=== PATIENT | female | born 1965 | race Caucasian/White ===

== ENCOUNTER → 2023-10-29 06:20 | Day surgery (SDC) | payer BC, SELFPAY | LOC: GI 06:20 | PROVIDERS: ATTENDING PHYSICIAN Internal Medicine; FAMILY PHYSICIAN Internal Medicine | DX: Z12.11 Encounter for screening for malignant neoplasm of colon (principal); K64.9 Unspecified hemorrhoids; N81.6 Rectocele; Z86.010 Personal history of colon polyps; K57.30 Diverticulosis of large intestine without perforation or abscess without bleeding; D12.2 Benign neoplasm of ascending colon | CPT/HCPCS: 45380; 88305 ==

== ENCOUNTER → 2023-11-10 08:53 | Outpatient (REF) | payer BC, SELFPAY | LOC: WDC 08:53 | PROVIDERS: ATTENDING PHYSICIAN Nurse Practitioner Family; FAMILY PHYSICIAN Internal Medicine | DX: R92.2 Inconclusive mammogram (principal) | CPT/HCPCS: 76641 ==

== ENCOUNTER → 2023-12-03 11:23 | Outpatient (REF) | payer BC, SELFPAY | LOC: WDC 11:23 | PROVIDERS: ATTENDING PHYSICIAN Nurse Practitioner Family; FAMILY PHYSICIAN Internal Medicine | DX: Z12.31 Encounter for screening mammogram for malignant neoplasm of breast (principal) | CPT/HCPCS: 77063; 77067 ==

== ENCOUNTER → 2023-12-04 08:33 | Outpatient (REF) | payer BC, SELFPAY | LOC: WDC 08:33 | PROVIDERS: ATTENDING PHYSICIAN Nurse Practitioner Family; FAMILY PHYSICIAN Internal Medicine | DX: R92.8 Other abnormal and inconclusive findings on diagnostic imaging of breast (principal) | CPT/HCPCS: 77065 ==

== ENCOUNTER → 2024-01-04 15:52 | Outpatient (REF) | payer BC, SELFPAY | LOC: MRI 3T 15:52 | PROVIDERS: ATTENDING PHYSICIAN Nurse Practitioner Family; FAMILY PHYSICIAN Internal Medicine | DX: R92.8 Other abnormal and inconclusive findings on diagnostic imaging of breast (principal) | CPT/HCPCS: 77049; A9585 ==

== ENCOUNTER → 2024-01-07 09:58 | Outpatient (REF) | payer BC, SELFPAY | LOC: RCS 09:58 | PROVIDERS: ATTENDING PHYSICIAN Internal Medicine Cardiovascular Disease; FAMILY PHYSICIAN Internal Medicine | DX: R00.2 Palpitations (principal); R06.09 Other forms of dyspnea; R07.89 Other chest pain | CPT/HCPCS: 93017 ==

== ENCOUNTER 2024-05-17 10:19 | Emergency (ER) | payer BC, SELFPAY ==
[2024-05-17] VITALS (8 sets, daily range): BP systolic 104–146; BP diastolic 62–77; PULSE 61–69; BMI 23.2
[2024-05-17 11:43] LABS: % Basophils 1.1 % (0-2); % Eosinophils 2.9 % (0-6); % Immature Granulocytes 0.2 % (0-0.5); % Lymphocytes 48.1 % (20.5-51.1); % Monocytes 9.3 % (1.7-9.3); % Neutrophils 38.4 % (42.2-75.2); Absolute Basophils 0.1 10^3/uL (0-0.2); Absolute Eosinophils 0.2 10^3/uL (0-0.7); Absolute Lymphocytes 2.7 10^3/uL (1.2-3.4); Absolute Monocytes 0.5 10^3/uL (0.1-0.6); Absolute Neutrophils 2.1 10^3/uL (1.4-6.5); Hematocrit 40.1 % (37.0-47.0); Hemoglobin 14.1 g/dL (12.0-16.0); Mean Corp Hgb Conc. 35.2 g/dL (33.0-37.0); Mean Corpuscular Volume 90.9 fL (81.0-99.0); Mean Platelet Volume 9.5 fL (7.4-10.4); Nucleated Red Blood Cells % 0 %; Platelet Count 270 10^3/uL (130-400); Red Blood Cell Count 4.41 10^6/uL (4.20-5.40); Red Cell Dist. Width 12.2 % (11.5-14.5); White Blood Cell Count 5.5 10^3/uL (4.8-10.8)
[2024-05-17] MEDS: NSS 1000 IV (11:52)
[2024-05-17 11:53] LABS: Urine Albumin Negative (Neg - Trace); Urine Bilirubin Negative (Negative); Urine Character Clear (Clear); Urine Color Yellow; Urine Glucose Negative (Negative); Urine Ketone Negative (Negative); Urine Leukocyte Negative (Negative); Urine Nitrite Negative (Negative); Urine Occult Blood Negative (Negative); Urine Specific Gravity 1.005 (<1.030); Urine Urobilinogen Negative (Neg - 1+)
[2024-05-17 11:55] LABS: ALT (SGPT) 15 U/L (0-35); AST (SGOT) 27 U/L (14-36); Albumin 4.4 g/dl (3.5-5.0); Alkaline Phosphatase 71 U/L (38-126); Blood Urea Nitrogen 15 mg/dl (7-17); Calcium 10.3 mg/dl (8.4-10.2); Carbon Dioxide 30 mmol/L (22-30); Chloride 102 mmol/L (98-107); Estimated Creatinine Clearance 55 ml/min; Glucose 73 mg/dl (70-99); Potassium 4.3 mmol/L (3.5-5.1); Sodium 139 mmol/L (135-145); Total Bilirubin 0.5 mg/dl (0.2-1.3); Total Protein 6.8 g/dl (6.3-8.2); eGFR > 60.00
[2024-05-17 12:07] LABS: Troponin I < 0.012 ng/ml
--- NOTE | 2024-05-17 12:23 | ED.GENMED ---
History of Present Illness
General
Chief Complaint: Fainting Sensation
Source: patient
Exam Limitations: none
Time Seen by Provider: 05/17/24 11:25
Nursing documentation reviewed up to this point in time: agreed with
History of Present Illness
History of Present Illness:
Patient is a 58 year old female with history hypothyroid, frequent PVCs and PACs presenting to the emergency department for evaluation of heart palpitations with associated lightheadedness. Patient states that she was standing up working as an
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 The symptoms persisted and she came to the emergency department for evaluation. She did have some mild associated chest discomfort which
quickly resolved and denies any exertional or pleuritic component. Patient denies any associated dizziness, nausea, vomiting, diaphoresis.
Patient does report very frequent PVCs/PACs but she does follow with Dr. Dali Munoz. She had a recent exercise stress test in 01/19 which showed PVCs but no other ischemic changes.
Patient takes propranolol 60 mg ER daily with dinner. She has been taking it intermittently over the past year but has been taking it consistently for the past 2 weeks.
Review of Systems
Review of Systems
Allergies reviewed?: Yes
All Other Systems: ROS reviewed and negative except as documented in HPI and ROS
Phy Exam
Physical Exam
Physical Exam:
Vitals: Slightly bradycardic on arrival, otherwise vital signs stable. Afebrile
General: Patient is well appearing, no acute distress. Nontoxic-appearing
Skin: Warm and dry, no rashes or lesions
Head: Normocephalic, atraumatic
Eyes: Sclera nonicteric. EOMs intact. No nystagmus.
Throat: Protecting airway. Trachea midline
Neck: Normal ROM, no cervical spine tenderness, no meningismus
Cardiac: Regular rate and rhythm, heart sounds normal.
Pulm: Normal respiratory effort, no wheezes, rales, rhonchi heard on exam.
Abdomen: Abdomen soft. No abdominal tenderness.
Extremities: No evidence of cyanosis or edema. Great distal pulses. Strength 5/5 in upper and lower extremities
Neuro: AAOx3. CN II-XII intact. No focal neurologic deficits.
Psychiatric: Normal affect.
Course
Orders/Labs/Results
Orders:
Orders
05/17/24 10:34
EKG [Electrocardiogram (*1)] Urgent
Reason for Study: Syncope
EKG- Treatment ONCE
05/17/24 11:12
Cardiac Monitoring- Treatment ONCE
IV Insert/Care/Rem.- Treatment PRN
O2 Therapy [RESP] Urgent
Titrate/Wean O2 to maintain O2 sat greater than (%): 90
Special Instructions: Maintain sats >/=90%
Pulse Ox/spot Check [RESP] Urgent
Quantity: 1
Special Instructions: ON ROOM AIR
05/17/24 11:30
Complete Blood Count/With Diff Urgent
Comprehensive Metabolic Panel Urgent
Thyroid profile [TSH Reflex To Free T4] Urgent
Troponin I Urgent
UA Reflex to Culture [Urinalysis Reflex To Culture] Stat
Date Specimen was Collected: 05/17/24
Time Specimen was Collected: 11:23
05/17/24 11:44
Orthostatic VS- Treatment ONCE
0.9% Sodium Chloride 1000 ml [Nss] 1,000 ml IV BOLUS
Abnormal Lab Results
05/17/24
11:30
MCH 32.0 H pg
(27.0-31.0)
Neutrophils % 38.4 L %
(42.2-75.2)
Calcium 10.3 H mg/dl
(8.4-10.2)
05/17/24 11:30
05/17/24 11:30
Vital Signs
Initial and Last Documented VS:
Initial Vital Signs
Temp Pulse Resp BP Pulse Ox
98.1 F 48 14 146/74 100
05/17/24 10:30 05/17/24 10:30 05/17/24 10:30 05/17/24 10:30 05/17/24 10:30
Last Documented Vital Signs
Temp Pulse Resp BP Pulse Ox
98.1 F 57 16 104/62 100
05/17/24 10:30 05/17/24 13:00 05/17/24 13:00 05/17/24 13:00 05/17/24 13:00
MDM/Problems Addressed
Differential Diagnosis Includes:
Not limited to: Orthostatic hypotension, dehydration, viral illness, cardiac arrhythmia, PACs/PVCs, anemia, medication side effect
MDM/Problems Addressed:
58-year-old female presenting with palpitations and associated lightheadedness. Symptoms worse when changing position or walking. No exertional chest pain or shortness of breath. Patient asymptomatic in my initial evaluation. She was mildly
bradycardic on arrival to emergency department which I suspect to be likely related to her beta-zoya although heart rate of 60 on my initial evaluation. Otherwise her vital signs are stable. Physical exam as above. patient is well-appearing, in
no apparent distress. Heart regular rate and rhythm. Lungs clear bilaterally. Patient is perfusing well. She has no focal neurologic deficits. Orthostatic vital signs were obtained which show no evidence of systolic or diastolic drop with
position changes. EKG obtained shows no acute abnormalities or changes from baseline. Patient given a liter of IV fluids in emergency department. Will obtain labs.
Patient seen by Dr. Dali Munoz with frequent PVCs/PACs. Did review patient's exercise stress test performed this past December which shows PVCs but no evidence of other ischemic changes. Patient without any known history of coronary artery
disease.
Labs noted. No clinically significant abnormalities. Troponin is normal. Do not suspect ACS. Urine shows no signs of infection. Patient has been asymptomatic while lying in hospital bed. She was able to walk to bathroom without difficulty
although she did report a few palpitations. No evidence of cardiac arrhythmia noted on monitor while in emergency department however she does note occasional PVCs. Given patient's symptomatic nature of palpitations�Case was discussed with
machine lay out worker on-call, Dr. Dean. He reviewed EKG and chart and agrees that there are no acute changes. He recommends continuation of propranolol at current dose and has arranged close outpatient follow-up with their office in a few weeks. Patient
otherwise stable without any indication for admission. She feels well and comfortable with discharge. Return precautions discussed at length. Case discussed with attending physician
Chronic conditions affecting care:
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
Acute Exacerbation and/or Progression of Chronic Illness:
N/A
*Pulse Oximetry
Patient hypoxic: no
*EKG
Interpreted by ED Provider?: Yes
EKG Intrepretation Date: 05/17/24
Interpretation: normal
Comparison EKG: no comparison EKG present
Heart Rate: 65
Rate: normal
Rhythm: sinus
[place]: left axis deviation
Interval: normal interval
QRS Pattern: normal QRS
Ischemia: no ischemia
*Attendant [place] Interpretation
Rate: normal
Interpretation: normal
Heart Rate: 58
Rhythm: sinus
*Critical Care Note
Total Time (30-74mins, 75-104mins- exclusive of procedures): Not Applicable
Data Reviewed
Review of Other/Old Records Reveals: Operative Reports (Exercise stress test performed on 01/07/24)
Patient Management
Discussion with other providers: Dump Attendant (Dr. Dean - Cardiology)
Escalation/DeEscalation of care consider admission/obs:
Discharge for outpatient cardiology f/u arranged with Dr. Dean
ED Attending Note
-
Portions of this chart may have been created with voice recognition software.� Occasional wrong word or��sound alike� substitutions may have occurred due to the inherent limitations of voice recognition software.
Discharge Plan
Departure
Patient Disposition: Home (Routine Discharge)
Date of Disposition: 05/17/24
Time of Disposition: 14:16
Patient with high blood pressure during this ER visit?: No
Condition: Good
Covid-19: Not Applicable
Discharge Problem:
Palpitations, Lightheadedness
Instructions: Near Fainting (DC), Palpitations ED
Referrals:
Kristi Gann PA-C [Specified Professional Personl] - 06/07/24 7:40 am (You have a cardiology follow-up appointment at the [facility] with Dr. Mcnally's physician medical assistant dermatology, Kristi. Please call with questions)
Lucia Del Rosario MD [Family Provider] -
Stand Alone Forms: Return to Work
Activity Restrictions/Additional Instructions:
RETURN TO THE EMERGENCY DEPARTMENT WITH ANY FEVERS, CHEST PAIN, SHORTNESS OF BREATH, DIZZINESS/LIGHTHEADEDNESS, FAINTING, PERSISTENT/WORSENING PALPITATIONS, OR ANY OTHER CONCERNS
-As discussed - you should continue to take your medications as prescribed. Stay well hydrated. Follow-up with cardiology for further evaluation/management at your appointment as scheduled above.
Monitor your symptoms closely and return to the emergency department with any acute worsening/new symptoms
Interventions
Interventions:
*Risk Screen - Suicide Last Done: 05/17/24 11:25
*General Assessment Last Done: 05/17/24 10:30
*Neglect/Abuse Screening Last Done: 05/17/24 11:25
ED- Fall Risk Assessment Last Done: 05/17/24 11:25
*ED COVID-19 Vaccine History Last Done: 05/17/24 11:25
*Nursing Disposition Last Done: 05/17/24 14:34
ED- Cardiac Assessment Last Done: 05/17/24 11:25
ED- Neurological Assessment Last Done: 05/17/24 11:25
Discharge Date and Time
Discharge Date/Time: 05/17/24 14:34
Print Language: TURKISH
[2024-05-17 12:54] LABS: TSH Reflex To Free T4 0.64 uIU/ml (0.47-4.68)
== END 2024-05-17 14:34 | disposition home or self-care (01) ==
LOC: EMR 10:19
PROVIDERS: EMERGENCY PHYSICIAN Emergency Medicine; FAMILY PHYSICIAN Internal Medicine
DX: R55 Syncope and collapse (principal); R00.2 Palpitations; R07.89 Other chest pain; I49.3 Ventricular premature depolarization; E03.9 Hypothyroidism, unspecified; J45.909 Unspecified asthma, uncomplicated; K21.9 Gastro-esophageal reflux disease without esophagitis; Z88.2 Allergy status to sulfonamides
CPT/HCPCS: 99284; 96360; 94760; 80053; 81003; 84443; 84484; 85025; 93005

== ENCOUNTER → 2024-06-20 11:23 | Outpatient (REF) | payer BC, SELFPAY | LOC: WDC 11:23 | PROVIDERS: ATTENDING PHYSICIAN Nurse Practitioner Family; FAMILY PHYSICIAN Internal Medicine | DX: R92.8 Other abnormal and inconclusive findings on diagnostic imaging of breast (principal) | CPT/HCPCS: 77061; 77065 ==

== ENCOUNTER → 2024-07-25 12:18 | Outpatient (REF) | payer BC, SELFPAY | LOC: RAD 12:18 | PROVIDERS: ATTENDING PHYSICIAN Radiology Diagnostic Radiology; FAMILY PHYSICIAN Internal Medicine | DX: M79.672 Pain in left foot (principal) | CPT/HCPCS: 73630 ==

== ENCOUNTER → 2024-09-01 08:31 | Outpatient (REF) | payer BC, SELFPAY ==
[2024-09-01 09:22] LABS: % Basophils 1.2 % (0-2); % Immature Granulocytes 0.3 % (0-0.5); % Lymphocytes 36.7 % (20.5-51.1); % Monocytes 7.5 % (1.7-9.3); % Neutrophils 52.3 % (42.2-75.2); Absolute Basophils 0.1 10^3/uL (0-0.2); Absolute Eosinophils 0.1 10^3/uL (0-0.7); Absolute Lymphocytes 2.4 10^3/uL (1.2-3.4); Absolute Monocytes 0.5 10^3/uL (0.1-0.6); Absolute Neutrophils 3.4 10^3/uL (1.4-6.5); Hematocrit 42.8 % (37.0-47.0); Hemoglobin 14.6 g/dL (12.0-16.0); Mean Corp Hgb Conc. 34.1 g/dL (33.0-37.0); Mean Corpuscular Hgb 30.9 pg (27.0-31.0); Mean Corpuscular Volume 90.5 fL (81.0-99.0); Nucleated Red Blood Cells % 0 %; Platelet Count 297 10^3/uL (130-400); Red Blood Cell Count 4.73 10^6/uL (4.20-5.40); Red Cell Dist. Width 12.5 % (11.5-14.5); White Blood Cell Count 6.5 10^3/uL (4.8-10.8)
[2024-09-01 09:56] LABS: ALT (SGPT) 19 U/L (0-35); AST (SGOT) 26 U/L (14-36); Albumin 4.4 g/dl (3.5-5.0); Alkaline Phosphatase 80 U/L (38-126); Blood Urea Nitrogen 19 mg/dl (7-17); Carbon Dioxide 30 mmol/L (22-30); Chloride 102 mmol/L (98-107); Glucose 94 mg/dl (70-99); HDL Cholesterol 87 mg/dl; LDL Cholesterol, Calculated 127 mg/dl; Potassium 4.7 mmol/L (3.5-5.1); Sodium 142 mmol/L (135-145); Total Bilirubin 0.3 mg/dl (0.2-1.3); Total Cholesterol 228 mg/dl (50-199); Total Protein 7.2 g/dl (6.3-8.2); Triglyceride 72 mg/dl (10-149); Very Low Density Lipoprotein 14 mg/dl (0-30); eGFR > 60.00
[2024-09-01 10:19] LABS: TSH 2.24 uIU/ml (0.47-4.68)
== END ==
LOC: REG 08:31
PROVIDERS: ATTENDING PHYSICIAN Internal Medicine
DX: Z00.00 Encounter for general adult medical examination without abnormal findings (principal); E03.9 Hypothyroidism, unspecified; K58.8 Other irritable bowel syndrome; K59.00 Constipation, unspecified; E78.5 Hyperlipidemia, unspecified
CPT/HCPCS: 36415; 80053; 80061; 84443; 85025

== ENCOUNTER → 2024-10-14 11:02 | Outpatient (REF) | payer BC, SELFPAY | LOC: RAD 11:02 | PROVIDERS: ATTENDING PHYSICIAN Internal Medicine Pulmonary Disease; FAMILY PHYSICIAN Internal Medicine | DX: R05.3 Chronic cough (principal) | CPT/HCPCS: 71046 ==

== ENCOUNTER → 2025-01-05 11:57 | Outpatient (REF) | payer BC, SELFPAY | LOC: WDC 11:57 | PROVIDERS: ATTENDING PHYSICIAN Nurse Practitioner Family; FAMILY PHYSICIAN Obstetrics & Gynecology Gynecology | DX: Z12.31 Encounter for screening mammogram for malignant neoplasm of breast (principal) | CPT/HCPCS: 77063; 77067 ==

== ENCOUNTER → 2025-01-06 09:21 | Outpatient (REF) | payer BC, SELFPAY | LOC: WDC 09:21 | PROVIDERS: ATTENDING PHYSICIAN Nurse Practitioner Family; FAMILY PHYSICIAN Obstetrics & Gynecology Gynecology | DX: R92.1 Mammographic calcification found on diagnostic imaging of breast (principal) | CPT/HCPCS: 88305; 19081; 76098; A4648 ==

== ENCOUNTER → 2025-01-12 19:32 | Outpatient (REF) | payer BC, SELFPAY | LOC: MRI 3T 19:32 | PROVIDERS: ATTENDING PHYSICIAN Nurse Practitioner Family; FAMILY PHYSICIAN Internal Medicine | DX: N62 Hypertrophy of breast (principal) | CPT/HCPCS: 77049; A9585 ==

== ENCOUNTER → 2025-01-23 11:31 | Outpatient (REF) | payer BC, SELFPAY | LOC: RAD 11:31 | PROVIDERS: ATTENDING PHYSICIAN Surgery Surgical Oncology; FAMILY PHYSICIAN Internal Medicine | DX: Z13.820 Encounter for screening for osteoporosis (principal) | CPT/HCPCS: 77080 ==

== ENCOUNTER → 2025-06-20 11:26 | Outpatient (REF) | payer BC, SELFPAY | LOC: RAD 11:26 | PROVIDERS: ATTENDING PHYSICIAN Nurse Practitioner Obstetrics & Gynecology; FAMILY PHYSICIAN Internal Medicine | DX: N95.0 Postmenopausal bleeding (principal) | CPT/HCPCS: 76830; 76856 ==

== ENCOUNTER → 2025-06-22 07:02 | Outpatient (REF) | payer BC, SELFPAY | LOC: RSP 07:02 | PROVIDERS: ATTENDING PHYSICIAN Internal Medicine Pulmonary Disease; FAMILY PHYSICIAN Internal Medicine | DX: J45.40 Moderate persistent asthma, uncomplicated (principal) | CPT/HCPCS: 88738; 94010; 94727; 94729 ==

== ENCOUNTER → 2025-06-29 07:36 | Outpatient (REF) | payer BC, SELFPAY | LOC: WDC 07:36 | PROVIDERS: ATTENDING PHYSICIAN Surgery Surgical Oncology; FAMILY PHYSICIAN Internal Medicine | DX: D05.01 Lobular carcinoma in situ of right breast (principal); R92.8 Other abnormal and inconclusive findings on diagnostic imaging of breast | CPT/HCPCS: 77061; 77065 ==

== ENCOUNTER → 2025-08-19 07:44 | Outpatient (REF) | payer BC, SELFPAY | LOC: MRI 3T 07:44 | PROVIDERS: ATTENDING PHYSICIAN Surgery Surgical Oncology; FAMILY PHYSICIAN Internal Medicine | DX: R92.8 Other abnormal and inconclusive findings on diagnostic imaging of breast (principal) | CPT/HCPCS: 77049; A9585 ==

== ENCOUNTER → 2025-09-27 09:25 | Outpatient (REF) | payer BC, SELFPAY ==
[2025-09-27 10:38] LABS: Hematocrit 42.4 % (37.0-47.0); Hemoglobin 14.1 g/dL (12.0-16.0); Mean Corp Hgb Conc. 33.3 g/dL (33.0-37.0); Mean Corpuscular Volume 91.0 fL (81.0-99.0); Nucleated Red Blood Cells % 0 %; Platelet Count 274 10^3/uL (130-400); Red Cell Dist. Width 12.3 % (11.5-14.5)
[2025-09-27 11:28] LABS: Vitamin D, 25-OH*** 45.8 ng/mL (30-80)
[2025-09-27 11:29] LABS: ALT (SGPT) 21 U/L (0-35); AST (SGOT) 28 U/L (14-36); Albumin 4.6 g/dl (3.5-5.0); Alkaline Phosphatase 71 U/L (38-126); Blood Urea Nitrogen 17 mg/dl (7-17); Calcium 10.2 mg/dl (8.4-10.2); Carbon Dioxide 28 mmol/L (22-30); Chloride 104 mmol/L (98-107); Glucose 85 mg/dl (70-99); HDL Cholesterol 86 mg/dl; LDL Cholesterol, Calculated 161 mg/dl; Magnesium 2.0 mg/dl (1.6-2.3); Potassium 4.2 mmol/L (3.5-5.1); Sodium 139 mmol/L (135-145); Total Protein 7.4 g/dl (6.3-8.2); Very Low Density Lipoprotein 7 mg/dl (0-30); eGFR > 60.00
[2025-09-27 11:42] LABS: TSH 1.06 uIU/ml (0.47-4.68)
[2025-09-28 23:06] LABS: Lipoprotein a (Lp a) 121 mg/dL (<=29)
== END ==
LOC: REG 09:25
PROVIDERS: ATTENDING PHYSICIAN Internal Medicine Cardiovascular Disease; FAMILY PHYSICIAN Internal Medicine
DX: I49.1 Atrial premature depolarization (principal); R00.2 Palpitations; E55.9 Vitamin D deficiency, unspecified; E78.49 Other hyperlipidemia
CPT/HCPCS: 36415; 80053; 80061; 82306; 83695; 83735; 84443; 85025